=== PATIENT | female | born 1990 | race Caucasian/White ===

== ENCOUNTER 2018-01-28 07:44 | Emergency (ER) | payer BC, MEDICAID ==
[2018-01-28 07:46] VITALS: BMI 42.0
[2018-01-28 07:47] VITALS: RESP 16
[2018-01-28] MEDS ORDERED: Sodium Chloride 0.9% 1,000 ML IV STA (08:07)
[2018-01-28] MEDS ORDERED: Famotidine 20mg/50ml 20 MG/50 ML BAG IVPB ONE ×2 (08:11→08:30)
--- NOTE | 2018-01-28 08:11 | ED PDOC ---
HPI: Abdomen Time Seen by Provider: 01/28/18 07:56 Chief Complaint (Nursing): Abdominal Pain Chief Complaint (Provider): Abdominal Pain History Per: Patient History/Exam Limitations: no limitations Onset/Duration Of Symptoms: Hrs Outside of [place] travel?: No Current Symptoms Are (Timing): Still Present Associated Symptoms: Vomiting, Diarrhea, Back Pain. denies: Fever, Chills, Chest Pain Additional Complaint(s): 27 y/o female presents to the ED with abdominal pain. 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 Approximately 3 hours later after eating the pizza around 10 pm she began to have 10+ vomiting episodes and 3 episodes of diarrhea. Associated symptoms are sweating, back pain, and cramps after vomiting episodes. Denies any CP, SOB, fever, and chills. LMP: 01/24/18 Of note, patient also complains of a cough and sore throat. PMD: Past Medical History Reviewed: Historical Data, Nursing Documentation, Vital Signs Vital Signs: Last Vital Signs Temp 99.1 F 01/28/18 07:46 Pulse 119 H 01/28/18 07:46 Resp 16 01/28/18 07:46 BP 121/82 01/28/18 07:46 Pulse Ox 96 01/28/18 08:31 - Medical History PMH: Asthma, Gall Bladder Disease (gall stones), HTN () Denies: HIV, Chronic Kidney Disease - Surgical History Surgical History: Cholecystectomy, (x4) - Family History Family History: States: Unknown Family Hx - Social History Current smoker - smoking cessation education provided: No Ex-Smoker (has not smoked in the last 12 months): No Alcohol: None Drugs: Denies - Immunization History Hx Tetanus Toxoid Vaccination: No Hx Influenza Vaccination: No Hx Pneumococcal Vaccination: No - Home Medications Home Medications: Ambulatory Orders Medication Instructions Recorded Famotidine [Pepcid] 20 mg PO BID #28 tab 01/28/18 Ondansetron [Zofran] 4 mg PO Q8H #9 tab 01/28/18 - Allergies Allergies/Adverse Reactions: Allergies Allergy/AdvReac Type Severity Reaction Status Date / Time Sulfa (Sulfonamide Allergy RASH Verified 01/28/18 09:21 Antibiotics) Review of Systems ROS Statement: Except As Marked, All Systems Reviewed And Found Negative Constitutional: Positive for: Sweats. Negative for: Fever, Chills ENT: Positive for: Throat Pain Cardiovascular: Negative for: Chest Pain Respiratory: Positive for: Cough. Negative for: Shortness of Breath Gastrointestinal: Positive for: Vomiting, Abdominal Pain, Diarrhea Musculoskeletal: Positive for: Back Pain Physical Exam - Reviewed Nursing Documentation Reviewed: Yes Vital Signs Reviewed: Yes - Physical Exam Appears: Positive for: Non-toxic, Uncomfortable Head Exam: Positive for: ATRAUMATIC, NORMOCEPHALIC Skin: Positive for: Pallor (flushed with headache). Negative for: Normal Color Eye Exam: Positive for: Normal appearance (anicteric in eyes), EOMI, PERRL ENT: Positive for: Normal ENT Inspection, Pharynx Is (clear), Other (mucous membranes are moist) Neck: Positive for: Normal, Painless ROM, Supple (nonrigid) Cardiovascular/Chest: Positive for: Regular Rate, Rhythm, Tachycardia (120 on exam). Negative for: Murmur (S1S2 normal) Respiratory: Positive for: Normal Breath Sounds. Negative for: Respiratory Distress Gastrointestinal/Abdominal: Positive for: Soft, Tenderness (epigastric). Negative for: Normal Exam, Distended, Guarding Back: Positive for: Normal Inspection. Negative for: L CVA Tenderness, R CVA Tenderness Extremity: Positive for: Normal ROM. Negative for: Pedal Edema Neurologic/Psych: Positive for: Alert (awake), Oriented (x3) - Laboratory Results Result Diagrams: 01/28/18 08:20 01/28/18 08:20 - ECG O2 Sat by Pulse Oximetry: 96 (RA) Pulse Ox Interpretation: Normal - Progress Re-evaluation Time: 10:30 Condition: Re-examined, Improved Medical Decision Making Medical Decision Making: Time: 07:46 Impression: Acute gastroenteritis Differential Diagnosis: Viral versus food poisoning Initial Plan: * CMP * UDip * Test * CBC * Famotidine 20 mg 50 ml IVPB * Toradol 30 mg IVP * IV Fluids * Zofran 4 mg IVP Scribe Attestation: Documented by Jj Fernandez acting as a scribe for Clari Garcia MD. Scribe Attestation: All medical record entries made by the Scribe were at my direction and personally dictated by me. I have reviewed the chart and agree that the record accurately reflects my personal performance of the history, physical exam, medical decision making, and the department course for this patient. I have also personally directed, reviewed, and agree with the discharge instructions and disposition. Disposition - Clinical Impression Clinical Impression: Gastroenteritis - Patient ED Disposition Is Patient to be Admitted: No Doctor Will See Patient In The: Office Counseled Patient/Family Regarding: Diagnosis, Need For Followup, Rx Given - Disposition Referrals: Magdalena Moore [Outside] Disposition: Routine/Home Disposition Time: 10:30 Condition: STABLE Prescriptions: Famotidine [Pepcid] 20 mg PO BID #28 tab Ondansetron [Zofran] 4 mg PO Q8H #9 tab Instructions: Gastroenteritis (ED) Forms: [employer] ([place]), [facility] ED School/Work Excuse - POA Present On Arrival: None
[2018-01-28 08:55] LABS: BASO % 0.1 % (0.0-2.0); EOS % 0.1 % (0.0-4.0); HEMOGLOBIN 13.5 g/dL (12.0-16.0); LYMPH # 0.6 K/uL (1.0-4.3); LYMPH % 4.8 % (20.0-40.0); MEAN CELL VOLUME 81.9 fl (81.0-99.0); MEAN CORPUSCULAR HEMOGLOBIN 27.8 pg (27.0-31.0); MEAN CORPUSCULAR HGB CONC 33.9 g/dL (33.0-37.0); MONO # 0.4 K/uL (0.0-0.8); MONO % 3.1 % (0.0-10.0); NEUT # 10.8 K/uL (1.8-7.0); NEUT % 91.9 % (50.0-75.0); NRBC % 0.1 % (0.0-0.0); PLATELET COUNT 335 K/uL (130-400); RBC 4.86 Mil/uL (3.80-5.20); RED CELL DISTRIBUTION WIDTH 14.2 % (11.5-14.5); WHITE BLOOD COUNT 11.7 K/uL (4.8-10.8)
[2018-01-28 09:01] LABS: ALB/GLOB RATIO 1.1 (1.0-2.1); ALBUMIN 4.2 g/dL (3.5-5.0); ALT/SGPT 31 U/L (9-52); AST/SGOT 20 U/L (14-36); BLOOD UREA NITROGEN 17 mg/dl (7-17); CALCIUM 8.6 mg/dL (8.4-10.2); GFR AFRICAN-AMERICAN > 60; GFR NON-AFRICAN AMERICAN > 60
[2018-01-28] MEDS ORDERED: Sucralfate 1 gm/10 ml Oral Susp UD PO STA (09:26)
[2018-01-28 09:54] LABS: BANDS 2 % (0-2); LYMPHOCYTE 2 % (20-50); MONOCYTE 3 % (0-10); NEUTROPHIL 93 % (42-75); TOTAL CELLS COUNTED 100
[2018-01-28 09:55] LABS: PLATELET ESTIMATE NORMAL (NORMAL)
[2018-01-28 11:37] VITALS: BP 125/80; PULSE 75; TEMP 98.1; O2SAT 100
== END 2018-01-28 11:49 | disposition home or self-care (01) ==
LOC: H.ER 07:44
DX: K52.9 Noninfective gastroenteritis and colitis, unspecified (principal); I10 Essential (primary) hypertension; J45.909 Unspecified asthma, uncomplicated
CPT/HCPCS: 80053; 81025; 85025; 96361; 96365; 96375; 99284; J1885; J2405; J7030